=== PATIENT | female | born 1990 | race American Indian/Alaskan Native ===

== ENCOUNTER 2022-05-13 20:21 | Observation (INO) | payer SELFPAY ==
--- NOTE | 2022-05-13 21:13 | Emergency Department Report ---
HPI - General Chief Complaint: Headache Time Seen by Provider: 05/13/22 20:41 - HPI HPI: Room 22 The patient is a 32-year-old female present with a chief complaint of fall headache stuttering speech and right leg weakness. Patient states just prior to arrival while standing she felt dizzy and fell to the ground. Patient denies losing consciousness. Patient states afterwards she developed blurred vision from the right eye headache nausea/vomiting stuttering speech and weakness in the right lower extremity. Patient states she felt off balance when walking. Patient denies paresthesia. ED Past Medical Hx - Past Medical History Previous Medical History?: No - Surgical History Additional Surgical History: Ovarian cyst removal - Family History Family history: no significant - Social History Smoking Status: Former Smoker (None x2 years) Substance Use Type: Marijuana ED Review of Systems ROS: Stated complaint: POSSIBLE STROKE Other details as noted in HPI Constitutional: no symptoms reported Eyes: vision change ENT: denies: throat pain Respiratory: no symptoms reported Cardiovascular: denies: chest pain Endocrine: no symptoms reported Gastrointestinal: denies: abdominal pain Genitourinary: denies: dysuria Musculoskeletal: back pain Neurological: headache, weakness. denies: paresthesias Physical Exam - Physical Exam Vital Signs: Vital Signs 05/13/22 20:28 Temperature 98.3 F Pulse Rate 76 Respiratory 16 Rate Blood Pressure 153/89 [Right] O2 Sat by Pulse 100 Oximetry Physical Exam: GENERAL: The patient is well-developed well-nourished female lying on stretcher not appearing to be in acute distress. Occasional stuttering speech HEENT: Normocephalic. Atraumatic. Extraocular motions are intact. Patient has moist mucous membranes. NECK: Supple. Trachea midline CHEST/LUNGS: Clear to auscultation. There is no respiratory distress noted. HEART/CARDIOVASCULAR: Regular. There is no tachycardia. There is no gallop rub or murmur. ABDOMEN: Abdomen is soft, nontender. Patient has normal bowel sounds. There is no abdominal distention. SKIN: There is no rash. There is no edema. There is no diaphoresis. NEURO: The patient is awake, alert, and oriented. The patient is cooperative. The patient has no focal neurologic deficits. The patient has occasional stammering speech. GCS 15. Patient is able to hold right upper extremity at 45 degree angle for 10-second count-there is some drift but he does not fall to the bed. Patient able to hold left upper extremity at 45 degree angle for 10- second count without drift. Patient is able to hold left lower extremity at 30 degree angle for 5-second count without drift. Patient is unable to fully raise right lower extremity to 30 degree angle. Cranial nerves II through XII grossly intact with exception of cranial nerve #11 on the right. NIHSS= 3 MUSCULOSKELETAL: There is no evidence of acute injury. ED Course Vital Signs 05/13/22 20:28 Temperature 98.3 F Pulse Rate 76 Respiratory 16 Rate Blood Pressure 153/89 [Right] O2 Sat by Pulse 100 Oximetry - Consultations Consultation #1: 05/13/22 22:06 Case discussed with neurologist-no tPA. Recommends admission for MRI ED Medical Decision Making - Lab Data Result diagrams: 05/13/22 20:58 05/13/22 20:58 Laboratory Tests 05/13/22 05/13/22 05/13/22 20:40 20:58 20:58 WBC 13.3 H RBC 4.46 Hgb 13.2 Hct 39.7 MCV 89 MCH 30 MCHC 33 RDW 15.0 Plt Count 351 Lymph # (Auto) Strategic Intelligence Officer Add Manual Diff Complete Total Counted 100 Seg Neuts % (Manual) 59.0 Band Neutrophils % 0 Lymphocytes % (Manual) 34.0 Reactive Lymphs % (Man) 0 Monocytes % (Manual) 5.0 Eosinophils % (Manual) 1.0 Basophils % (Manual) 1.0 Metamyelocytes % 0 Myelocytes % 0 Promyelocytes % 0 Blast Cells % 0 Nucleated RBC % Not Reportable Seg Neutrophils # Man 7.8 H Band Neutrophils # 0.0 Lymphocytes # (Manual) 4.5 Abs React Lymphs (Man) 0.0 Monocytes # (Manual) 0.7 Eosinophils # (Manual) 0.1 Basophils # (Manual) 0.1 Metamyelocytes # 0.0 Myelocytes # 0.0 Promyelocytes # 0.0 Blast Cells # 0.0 WBC Morphology Not Reportable Hypersegmented Neuts Not Reportable Hyposegmented Neuts Not Reportable Hypogranular Neuts Not Reportable Smudge Cells Not Reportable Toxic Granulation Not Reportable Toxic Vacuolation Not Reportable Dohle Bodies Not Reportable Pelger-Huet Anomaly Not Reportable Rashi Rods Not Reportable Platelet Estimate Consistent w auto Clumped Platelets Not Reportable Plt Clumps, EDTA Not Reportable Large Platelets Not Reportable Giant Platelets Not Reportable Platelet Satelliting Not Reportable Plt Morphology Comment Not Reportable RBC Morphology Not Reportable Dimorphic RBCs Not Reportable Polychromasia Not Reportable Hypochromasia Not Reportable Poikilocytosis Not Reportable Anisocytosis Not Reportable Microcytosis Not Reportable Macrocytosis Not Reportable Spherocytes Not Reportable Pappenheimer Bodies Not Reportable Sickle Cells Not Reportable Target Cells Not Reportable Tear Drop Cells Not Reportable Ovalocytes Not Reportable Helmet Cells Not Reportable [place] Bodies Not Reportable [place] Rings Not Reportable Dorris Cells Not Reportable Bite Cells Not Reportable Crenated Cell Not Reportable Elliptocytes Not Reportable Acanthocytes (Spur) Not Reportable Rouleaux Not Reportable Hemoglobin C Crystals Not Reportable Schistocytes Not Reportable Malaria parasites Not Reportable Bautista Bodies Not Reportable Hem Pathologist Commnt No PT 15.0 H INR 1.03 APTT 44.1 H Thrombin Time 20.0 H Sodium Potassium Chloride Carbon Dioxide Anion Gap BUN Creatinine Estimated GFR BUN/Creatinine Ratio Glucose POC Glucose 71 Calcium HCG, Qual Plasma/Serum Alcohol 05/13/22 05/13/22 05/13/22 20:58 20:58 20:58 WBC RBC Hgb Hct MCV MCH MCHC RDW Plt Count Lymph # (Auto) Add Manual Diff Total Counted Seg Neuts % (Manual) Band Neutrophils % Lymphocytes % (Manual) Reactive Lymphs % (Man) Monocytes % (Manual) Eosinophils % (Manual) Basophils % (Manual) Metamyelocytes % Myelocytes % Promyelocytes % Blast Cells % Nucleated RBC % Seg Neutrophils # Man Band Neutrophils # Lymphocytes # (Manual) Abs React Lymphs (Man) Monocytes # (Manual) Eosinophils # (Manual) Basophils # (Manual) Metamyelocytes # Myelocytes # Promyelocytes # Blast Cells # WBC Morphology Hypersegmented Neuts Hyposegmented Neuts Hypogranular Neuts Smudge Cells Toxic Granulation Toxic Vacuolation Dohle Bodies Pelger-Huet Anomaly Rashi Rods Platelet Estimate Clumped Platelets Plt Clumps, EDTA Large Platelets Giant Platelets Platelet Satelliting Plt Morphology Comment RBC Morphology Dimorphic RBCs Polychromasia Hypochromasia Poikilocytosis Anisocytosis Microcytosis Macrocytosis Spherocytes Pappenheimer Bodies Sickle Cells Target Cells Tear Drop Cells Ovalocytes Helmet Cells [place] Bodies [place] Rings Dorris Cells Bite Cells Crenated Cell Elliptocytes Acanthocytes (Spur) Rouleaux Hemoglobin C Crystals Schistocytes Malaria parasites Bautista Bodies Hem Pathologist Commnt PT INR APTT Thrombin Time Sodium 139 Potassium 4.7 Chloride 104.1 Carbon Dioxide 22 Anion Gap 18 BUN 10 Creatinine 0.7 Estimated GFR > 60 BUN/Creatinine Ratio 14 Glucose 74 POC Glucose Calcium 9.8 HCG, Qual Negative Plasma/Serum Alcohol < 0.01 - EKG Data -: EKG Interpreted by Me EKG shows normal: sinus rhythm Rate: normal - EKG Data When compared to previous EKG there are: previous EKG unavailable Interpretation: nonspecific ST-T wave warner (T wave inversions in leads III, V3) - Radiology Data Radiology results: report reviewed (CT head), image reviewed (CT head) [facility] [address] [place] [address] Cat Scan Report Signed Patient: NATHALIE TOBIN MR#: [id number] : 1990 Acct:[id number] Age/Sex: 32 / F ADM Date: 05/13/22 Loc: ED Attending Dr: Ordering Physician: GABRIELA LUNA MD Date of Service: 05/13/22 Procedure(s): CT head/brain wo con Accession Number(s): [id number] cc: GABRIELA LUNA MD CT BRAIN: 05/13/2022 INDICATION / CLINICAL INFORMATION: Headache, slurred speech. COMPARISON: None available. FINDINGS: BRAIN/INTRACRANIAL STRUCTURES: Unenhanced CT images of the brain demonstrate no evidence of acute abnormality. Ventricles and sulci are normal in size and shape. There is no evidence of ischemic injury, hemorrhage, or mass. There are no abnormal extra-axial fluid collections. EXTRACRANIAL STRUCTURES: Unremarkable. IMPRESSION: No acute abnormality All CT scans at this location are performed using dose reduction to ALARA by means of automated exposure control. Signer Name: Jasvir Lai MD Signed: 05/13/2022 9:12 PM Workstation Name: [id number] Transcribed By: ELIOT Dictated By: Jasvir Lai MD Electronically Authenticated By: Jasvir Lai MD Signed Date/Time: 05/13/222111 DD/ 2111 TD/TT: - Differential Diagnosis Complex migraines, CVA, multiple sclerosis, anxiety, Critical care attestation.: If time is entered above; I have spent that time in minutes in the direct care of this critically ill patient, excluding procedure time. ED Disposition Clinical Impression: Right sided weakness, Headache Disposition: ADMITTED INPATIENT Is pt being admited?: Yes Does the pt Need Aspirin: Yes Condition: Fair Time of Disposition: 23:21 (Care transferred to hospitalist (Dr. Lopez))
--- NOTE | 2022-05-13 21:16 | Cat Scan Report ---
CT BRAIN: 05/13/2022 INDICATION / CLINICAL INFORMATION: Headache, slurred speech. COMPARISON: None available. FINDINGS: BRAIN/INTRACRANIAL STRUCTURES: Unenhanced CT images of the brain demonstrate no evidence of acute abn ormality. Ventricles and sulci are normal in size and shape. There is no evidence of ischemic injury, hemorrhage, or mass. There are no abnormal extra-axial fluid collections. EXTRACRANIAL STRUCTURES: Unremarkable. IMPRESSION: No acute abnormality All CT scans at this location are performed using dose reduction to ALARA by means of automated expos ure control. Signer Name: Jasvir Lai MD Signed: 05/13/2022 9:12 PM Workstation Name: [id number]
[2022-05-13] MEDS ORDERED: ONDANSETRON 4 MG/2 ML INJ IV ONE (21:29)
[2022-05-13 21:50] LABS: Hematocrit 39.7 % (30.3-42.9); Hemoglobin 13.2 gm/dl (10.1-14.3); Mean Corpuscular HGB Conc 33 % (30-34); Mean Corpuscular Volume 89 fl (79-97); Platelet Count 351 K/mm3 (140-440); Red Blood Count 4.46 M/mm3 (3.65-5.03)
[2022-05-13 22:00] LABS: Blood Urea Nitrogen 10 mg/dL (7-17); Calcium 9.8 mg/dL (8.4-10.2); Hemolysis Index 96
[2022-05-13] MEDS ORDERED: BUTALB/ACETAMINOPHEN/CAFFEINE TAB PO ONE (22:05)
[2022-05-13] MEDS ORDERED: ASPIRIN 325 MG TAB PO ONE (22:06)
[2022-05-13 22:10] LABS: BUN/Creatinine Ratio 14
--- NOTE | 2022-05-13 22:23 | Emergency Department Report ---
Blank Doc - Documentation Documentation: [facility] Consult Note # Demographics Consult Type: Acute Stroke Level 2 (4.5-24 hrs) Patient Location: Emergency Room First Name: NATHALIE Last Name: CRISTA Date of : 1990 Age: 32 Gender: Female Facility: [facility] Time of Initial Page (Eastern Time): 05/13/2022, 20:40 Time of Return Call (Eastern Time): 05/13/2022, 20:40 # HPI History: 32yo F presents with SLATER, blurred vision and slurred speech since 1200 today # Scores Level of Consciousness 1a: [0] = Alert; keenly responsive LOC Questions 1b: [1] = Answers one correctly LOC Commands 1c: [0] = Performs both tasks correctly Best Gaze 2: [0] = Normal Visual 3: [0] = No visual loss Facial Palsy 4: [0] = Normal symmetrical movements Motor Arm Left 5a: [0] = No drift Motor Arm Right 5b: [0] = No drift Motor Leg Left 6a: [0] = No drift Motor Leg Right 6b: [0] = No drift Limb Ataxia 7: [0] = Absent Sensory 8: [0] = Normal Best Language 9: [0] = No aphasia Dysarthria 10: [1] = Awsg-yi-meehcavx dysarthria Extinction and Inattention 11: [0] = No abnormality NIHSS Total: 2 # Exam Motor: pt appears to give poor effort throughout, flat affect. # Assessment Impression: Stroke Mimic # Plan Thrombolytic/Intervention: NOT IV Thrombolysis or IA Intervention candidate Thrombolytic Exclusion: > 4.5 hours Thrombolytic/Intraarterial Exclusion: IV thrombolytic and IA intervention considered but not recommended as this patient's symptoms are not clinically consistent with an assumed diagnosis of stroke Imaging: (urgency: routine): MRI Brain with AND without contrast Other: If patient has any neurological deterioration please call me back immediately would not pursue stroke work-up if MRI is negative I have discussed my recommendations with the referring provider # Logistics Telemedicine: Interactive 2 way audio and visual telecommunication technology was utilized during this visit # Demographics First Name: NATHALIE Last Name: CRISTA Facility: [facility]
[2022-05-13 23:03] LABS: INR 1.03 (0.87-1.13)
[2022-05-13 23:04] LABS: Partial Thromboplastin Time 44.1 Sec. (24.2-36.6)
[2022-05-13 23:05] LABS: Platelet Estimate Consistent w Auto; Total Cells Counted 100
[2022-05-13] MEDS ORDERED: ONDANSETRON 4 MG/2 ML INJ IV PRN (23:22)
[2022-05-13] MEDS ORDERED: MORPHINE 2 MG/1 ML INJ IV PRN ×2 (23:22→23:50)
[2022-05-13] MEDS ORDERED: ACETAMINOPHEN 325 MG TAB PO PRN (23:22)
[2022-05-13] MEDS ORDERED: D5W/0.45% NACL 1,000 ML IV SCH (23:45)
[2022-05-13] MEDS ORDERED: MORPHINE 4 MG/1 ML INJ IV PRN (23:50)
--- NOTE | 2022-05-13 23:58 | History and Physical Report ---
History of Present Illness Date of examination: 05/13/22 Date of admission: 05/13/22 Chief complaint: Headache History of present illness: 32-year-old female present with a chief complaint of fall headache stuttering speech and right leg weakness. Patient states just prior to arrival while standing she felt dizzy and fell to the ground. Patient denies losing cons ciousness. Patient states afterwards she developed blurred vision from the right eye headache nausea/vomiting stuttering speech and weakness in the right lower extremity. Patient states she felt off balance when walking. Patient denies paresthesia. In the emergency room initial CT scan of the head shows no acute intracranial abnormality. Subsequently patient was seen and evaluated by teleneurology who recommended no tPA and admission for MRI of the brain Past History Past Surgical History: Other Social history: smoking (Former smoker, marijuana) Family history: no significant family history (Ovarian cyst removal) Medications and Allergies Allergies Allergy/AdvReac Type Severity Reaction Status Date / Time No Known Allergies Allergy Verified 05/13/22 23:25 Active Meds: Active Medications Acetaminophen (Acetaminophen 325 Mg Tab) 650 mg PO Q4H PRN PRN Reason: Pain MILD(1-3)/Fever >100.5/SLATER Morphine Sulfate (Morphine 2 Mg/1 Ml Inj) 2 mg IV Q4H PRN PRN Reason: Pain, Moderate (4-6) Ondansetron HCl (Ondansetron 4 Mg/2 Ml Inj) 4 mg IV Q8H PRN PRN Reason: Nausea And Vomiting Sodium Chloride (Sodium Chloride 0.9% 10 Ml Flush Syringe) 10 ml IV BID PATRICIA Sodium Chloride (Sodium Chloride 0.9% 10 Ml Flush Syringe) 10 ml IV PRN PRN PRN Reason: LINE FLUSH Review of Systems Constitutional: other (Headache, right leg weakness, dizziness, fell to the ground) Exam - Constitutional Vitals: Temp Pulse Resp BP Pulse Ox 98.3 F 76 22 153/89 100 05/13/22 20:28 05/13/22 20:28 05/13/22 22:10 05/13/22 20:28 05/13/22 22:10 General appearance: Present: no acute distress, well-nourished - EENT Eyes: Present: PERRL ENT: hearing intact, clear oral mucosa - Neck Neck: Present: supple, normal ROM - Respiratory Respiratory effort: normal Respiratory: bilateral: CTA - Cardiovascular Heart Sounds: Present: S1 & S2. Absent: rub, click - Extremities Extremities: pulses symmetrical, No edema Peripheral Pulses: within normal limits - Abdominal General gastrointestinal: Present: soft, non-tender, non-distended, normal bowel sounds Female genitourinary: Present: normal - Integumentary Integumentary: Present: clear, warm, dry - Musculoskeletal Musculoskeletal: gait normal, strength equal bilaterally - Psychiatric Psychiatric: appropriate mood/affect, intact judgment & insight - Neurologic Neurologic: CNII-XII intact, moves all extremities Results - Labs CBC & Chem 7: 05/13/22 20:58 05/13/22 20:58 Labs: Laboratory Last Values WBC 13.3 K/mm3 (4.5-11.0) H 05/13/22 20:58 RBC 4.46 M/mm3 (3.65-5.03) 05/13/22 20:58 Hgb 13.2 gm/dl (10.1-14.3) 05/13/22 20:58 Hct 39.7 % (30.3-42.9) 05/13/22 20:58 MCV 89 fl (79-97) 05/13/22 20:58 MCH 30 pg (28-32) 05/13/22 20:58 MCHC 33 % (30-34) 05/13/22 20:58 RDW 15.0 % (13.2-15.2) 05/13/22 20:58 Plt Count 351 K/mm3 (140-440) 05/13/22 20:58 Lymph # (Auto) Case Assembler 05/13/22 20:58 Add Manual Diff Complete 05/13/22 20:58 Total Counted 100 05/13/22 20:58 Seg Neuts % (Manual) 59.0 % (40.0-70.0) 05/13/22 20:58 Band Neutrophils % 0 % 05/13/22 20:58 Lymphocytes % (Manual) 34.0 % (13.4-35.0) 05/13/22 20:58 Reactive Lymphs % (Man) 0 % 05/13/22 20:58 Monocytes % (Manual) 5.0 % (0.0-7.3) 05/13/22 20:58 Eosinophils % (Manual) 1.0 % (0.0-4.3) 05/13/22 20:58 Basophils % (Manual) 1.0 % (0.0-1.8) 05/13/22 20:58 Metamyelocytes % 0 % 05/13/22 20:58 Myelocytes % 0 % 05/13/22 20:58 Promyelocytes % 0 % 05/13/22 20:58 Blast Cells % 0 % 05/13/22 20:58 Nucleated RBC % Not Reportable 05/13/22 20:58 Seg Neutrophils # Man 7.8 K/mm3 (1.8-7.7) H 05/13/22 20:58 Band Neutrophils # 0.0 K/mm3 05/13/22 20:58 Lymphocytes # (Manual) 4.5 K/mm3 (1.2-5.4) 05/13/22 20:58 Abs React Lymphs (Man) 0.0 K/mm3 05/13/22 20:58 Monocytes # (Manual) 0.7 K/mm3 (0.0-0.8) 05/13/22 20:58 Eosinophils # (Manual) 0.1 K/mm3 (0.0-0.4) 05/13/22 20:58 Basophils # (Manual) 0.1 K/mm3 (0.0-0.1) 05/13/22 20:58 Metamyelocytes # 0.0 K/mm3 05/13/22 20:58 Myelocytes # 0.0 K/mm3 05/13/22 20:58 Promyelocytes # 0.0 K/mm3 05/13/22 20:58 Blast Cells # 0.0 K/mm3 05/13/22 20:58 WBC Morphology Not Reportable 05/13/22 20:58 Hypersegmented Neuts Not Reportable 05/13/22 20:58 Hyposegmented Neuts Not Reportable 05/13/22 20:58 Hypogranular Neuts Not Reportable 05/13/22 20:58 Smudge Cells Not Reportable 05/13/22 20:58 Toxic Granulation Not Reportable 05/13/22 20:58 Toxic Vacuolation Not Reportable 05/13/22 20:58 Dohle Bodies Not Reportable 05/13/22 20:58 Pelger-Huet Anomaly Not Reportable 05/13/22 20:58 Rashi Rods Not Reportable 05/13/22 20:58 Platelet Estimate Consistent w auto 05/13/22 20:58 Clumped Platelets Not Reportable 05/13/22 20:58 Plt Clumps, EDTA Not Reportable 05/13/22 20:58 Large Platelets Not Reportable 05/13/22 20:58 Giant Platelets Not Reportable 05/13/22 20:58 Platelet Satelliting Not Reportable 05/13/22 20:58 Plt Morphology Comment Not Reportable 05/13/22 20:58 RBC Morphology Not Reportable 05/13/22 20:58 Dimorphic RBCs Not Reportable 05/13/22 20:58 Polychromasia Not Reportable 05/13/22 20:58 Hypochromasia Not Reportable 05/13/22 20:58 Poikilocytosis Not Reportable 05/13/22 20:58 Anisocytosis Not Reportable 05/13/22 20:58 Microcytosis Not Reportable 05/13/22 20:58 Macrocytosis Not Reportable 05/13/22 20:58 Spherocytes Not Reportable 05/13/22 20:58 Pappenheimer Bodies Not Reportable 05/13/22 20:58 Sickle Cells Not Reportable 05/13/22 20:58 Target Cells Not Reportable 05/13/22 20:58 Tear Drop Cells Not Reportable 05/13/22 20:58 Ovalocytes Not Reportable 05/13/22 20:58 Helmet Cells Not Reportable 05/13/22 20:58 [place] Bodies Not Reportable 05/13/22 20:58 [place] Rings Not Reportable 05/13/22 20:58 [place] Cells Not Reportable 05/13/22 20:58 Bite Cells Not Reportable 05/13/22 20:58 Crenated Cell Not Reportable 05/13/22 20:58 Elliptocytes Not Reportable 05/13/22 20:58 Acanthocytes (Spur) Not Reportable 05/13/22 20:58 Rouleaux Not Reportable 05/13/22 20:58 Hemoglobin C Crystals Not Reportable 05/13/22 20:58 Schistocytes Not Reportable 05/13/22 20:58 Malaria parasites Not Reportable 05/13/22 20:58 Bautista Bodies Not Reportable 05/13/22 20:58 Hem Pathologist Commnt No 05/13/22 20:58 PT 15.0 Sec. (12.2-14.9) H 05/13/22 20:58 INR 1.03 (0.87-1.13) 05/13/22 20:58 APTT 44.1 Sec. (24.2-36.6) H 05/13/22 20:58 Thrombin Time 20.0 Sec. (15.1-19.6) H 05/13/22 20:58 Sodium 139 mmol/L (137-145) 05/13/22 20:58 Potassium 4.7 mmol/L (3.6-5.0) 05/13/22 20:58 Chloride 104.1 mmol/L (98-107) 05/13/22 20:58 Carbon Dioxide 22 mmol/L (22-30) 05/13/22 20:58 Anion Gap 18 mmol/L 05/13/22 20:58 BUN 10 mg/dL (7-17) 05/13/22 20:58 Creatinine 0.7 mg/dL (0.6-1.2) 05/13/22 20:58 Estimated GFR > 60 ml/min 05/13/22 20:58 BUN/Creatinine Ratio 14 % 05/13/22 20:58 Glucose 74 mg/dL (65-100) 05/13/22 20:58 POC Glucose 71 mg/dL (70-105) 05/13/22 20:40 Calcium 9.8 mg/dL (8.4-10.2) 05/13/22 20:58 HCG, Qual Negative (Negative) 05/13/22 20:58 Plasma/Serum Alcohol < 0.01 % (0-0.07) 05/13/22 20:58 - Imaging and Cardiology CT Scan - head: report reviewed Assessment and Plan VTE prophylaxis?: Mechanical Plan of care discussed with patient/family: Yes - Patient Problems (1) Right sided weakness Status: Acute Plan to address problem: Admit the patient to the medical telemetry. Aspirin 325 mg p.o. daily. Lipitor 40 mg p.o. daily. PT OT speech evaluation. MRI of the brain. MRI of the brain and neck with and without contrast. Neurology evaluation (2) Headache Status: Acute Plan to address problem: Tylenol 650 mg p.o. every 6 hours as needed. Morphine 2 mg IV every 4 hours as needed. We will monitor the patient closely (3) Tobacco abuse Status: Acute Plan to address problem: Patient counseled regarding quitting smoking. We put the patient on nicotine patch if needed (4) Marijuana abuse Status: Acute Plan to address problem: Patient counseled regarding quit taking marijuana. Patient voiced seems understanding (5) DVT prophylaxis Status: Acute Plan to address problem: SCD for DVT prophylaxis. Pepcid 20 mg IV every 12 hours for GI prophylaxis. Patient is a full code
[2022-05-14] MEDS: IPRATROPIUM/ALBUTEROL SULFATE 3 ML AMPUL.NEB IH SCH ×2 (08:23→16:13)
[2022-05-14] MEDS ORDERED: ASPIRIN 325 MG TAB PO SCH (10:00)
--- NOTE | 2022-05-14 10:22 | Magnetic Resonance Report ---
MR brain wo con INDICATION / CLINICAL INFORMATION: 32 years Female; stroke. TECHNIQUE: Multiplanar, multisequence MR images of the brain were obtained. Significant dental amalgam artifact noted. COMPARISON: CT-05/13/2022 FINDINGS: BRAIN / INTRACRANIAL CONTENTS: No acute hemorrhage, mass effect, midline shift, hydrocephalus, or acu te, large territorial infarct. No chronic infarct or atrophy. No significant white matter abnormality . CRANIOCERVICAL JUNCTION: No significant abnormality. VASCULAR FLOW-VOIDS: No significant abnormality. ORBITS: No significant abnormality of visualized orbits. SINUSES / MASTOIDS: No significant abnormality in the visualized paranasal sinuses or mastoid air dedrick ls. ADDITIONAL FINDINGS: None. IMPRESSION: 1. No focal mass, hemorrhage, hydrocephalus, or acute ischemia. Study limited by dental amalgam artif act. Signer Name: Andres Roy MD, III Signed: 05/14/2022 10:18 AM Workstation Name: [id number]
--- NOTE | 2022-05-14 10:24 | Magnetic Resonance Report ---
MR MRA/MRV head wo con INDICATION / CLINICAL INFORMATION: 32 years Female; stroke. TECHNIQUE: 3-D time of flight. NASCET type criteria used to evaluate stenoses. Study limited by dent al amalgam artifact. COMPARISON: None available. FINDINGS: INTERNAL CAROTID ARTERIES: Not well visualized on this study VERTEBROBASILAR SYSTEM: No significant narrowing appreciated. DISTAL BRANCHES: Distal branches of the anterior, middle, and posterior cerebral arteries are not wel l visualized on this exam because of dental amalgam artifact.. ANEURYSM: None identified. IMPRESSION: Study markedly limited, as described above. CTA of the head may be helpful for further evaluation, if clinically warranted. Signer Name: Andres Roy MD, III Signed: 05/14/2022 10:20 AM Workstation Name: [id number]
--- NOTE | 2022-05-14 10:29 | Consultation ---
History of Present Illness Consult date: 05/14/22 Reason for Consult: cva Chief complaint: Fall w/ weakness History of present illness: 32 yo right-handed female with migraine d/o, marijuana abuse, remote tobacco abuse, who presents with an episode of a fall with left-sided headache with slurred speech and right leg weakness w/ unsteadiness. Notes transient blurring of vision with headache (on the right side of the head) w/ nausea/emesis. Notes she has hx of migraines but they do not present like this and the migraine headache is different from this type of headache. She notes pressure behind the right eye right currently. Past History Past Surgical History: Other Social history: smoking (Former smoker, marijuana) Family history: no significant family history (Ovarian cyst removal) Medications and Allergies Allergies Allergy/AdvReac Type Severity Reaction Status Date / Time No Known Allergies Allergy Verified 05/13/22 23:25 Active Meds: Active Medications Acetaminophen (Acetaminophen 325 Mg Tab) 650 mg PO Q4H PRN PRN Reason: Pain MILD(1-3)/Fever >100.5/SLATER Albuterol/Ipratropium (Ipratropium/Albuterol Sulfate 3 Ml Ampul.Neb) 1 ampul IH Q6HRT [facility] Last Admin: 05/14/22 08:23 Dose: Not Given Aspirin (Aspirin 325 Mg Tab) 325 mg PO QDAY [facility] Atorvastatin Calcium (Atorvastatin 40 Mg Tab) 40 mg PO QHS [facility] Famotidine (Famotidine 20 Mg/2 Ml Inj) 20 mg IV BID [facility] Dextrose/Sodium Chloride (D5/0.45ns) 1,000 mls @ 100 mls/hr IV DIRECT PATRICIA Morphine Sulfate (Morphine 2 Mg/1 Ml Inj) 2 mg IV Q4H PRN PRN Reason: Pain, Moderate (4-6) Morphine Sulfate (Morphine 4 Mg/1 Ml Inj) 4 mg IV Q4H PRN PRN Reason: Pain , Severe (7-10) Ondansetron HCl (Ondansetron 4 Mg/2 Ml Inj) 4 mg IV Q8H PRN PRN Reason: Nausea And Vomiting Sodium Chloride (Sodium Chloride 0.9% 10 Ml Flush Syringe) 10 ml IV PRN PRN PRN Reason: LINE FLUSH Sodium Chloride (Sodium Chloride 0.9% 10 Ml Flush Syringe) 10 ml IV BID [facility] Review of Systems All systems: negative (as per hpi;) Physical Examination - Vital Signs Vital Signs: Vital Signs Temp Pulse Resp BP Pulse Ox 98.3 F 76 16 153/89 100 05/13/22 20:28 05/13/22 20:28 05/13/22 20:28 05/13/22 20:28 05/13/22 20:28 - Physical Exam Narrative exam: Gen: nad, well-nourished; Head: normocephalic; Eyes: no gaze deviation; no ptosis; ENT: normal vocalization; CVS: warm and well-perfused; Pulm: normal work of breathing; GI: appears non-distended; Ext: no cyanosis appreciated at distal extremities; Skin: no acute rash at distal extremities; Heme: no pathologic ecchymosis appreciated at distal extremities; Neuro: alert, oriented to name, age, month, year, surroundings, no dysarthria, no aphasia, CN 2 - PERRL, visual hernandez grossly intact except decreased lateral peripheral vision at right eye only, CN 3, 4, 6 - EOMI, CN 5 - facial sensation symmetric to light touch, CN 7 - facial movement symmetric, CN 8 - hearing grossly intact, CN 9, 10 - uvula midline, CN 11 symmetric shoulder movement, CN 12 - tongue midline; Motor - at least 4+/5 at all exts with straight drift at right arm/leg; Sensory - light touch symmetric, Cerebellar - fnf intact with difficulty with right hts due to weakness, Gait - deferred secondary to fall risk; NIHSS (1a.) Level of Consciousness:0 (1b.) LOC Questions:0 (1c.) LOC Commands:0 (2.) Best Gaze:0 (3.) Visual:1 (4.) Facial Palsy:0 (5a.) Motor Arm, Left:0 (5b.) Motor Arm, Right:1 (6a.) Motor Leg, Left:0 (6b.) Motor Leg, Right:1 (7.) Limb Ataxia:0 (8.) Sensory:0 (9.) Best Language:0 (10.) Dysarthria:0 (11.) Extinction and Inattention:0 NIHSS Total Score: 3 Results - Laboratory Findings CBC and BMP: 05/14/22 04:00 05/14/22 Unknown Abnormal Lab Findings: Abnormal Labs 05/13/22 05/13/22 20:58 20:58 WBC 13.3 H Seg Neutrophils # Man 7.8 H PT 15.0 H APTT 44.1 H Thrombin Time 20.0 H Assessment and Plan 32 yo right-handed female with migraine d/o, marijuana abuse, remote tobacco abuse, who presents with an episode of a fall with left-sided headache with slurred speech and right leg weakness w/ unsteadiness w/ blurred vision and currently with a sensation of pressure behind the right eye. 1. Conversion Disorder - diagnosis of exclusion; mri brain w/ wo contrast; cta/ctv head/neck w/ wo contrast; 2. Syncope - non-neurogenic workup per primary team; cta head/neck w/ wo contrast. 3. Acute Ischemic Stroke - awaiting mri imaging; antiplatelet/statin therapy if mri is positive for acute infarction (tte; stroke labs). 4. Acute Right Hemiparesis - pt/ot evaluation / monitoring. 5. Right Eye Visual Change - low vision ot evaluation / monitoring; ophthalmol ogy evaluation ariel. 6. Migraine d/o - this presentation is not c/w patient's migraine headache(s). 7. Marijuana Abuse - outpatient cessation program. Crow Loco MD Neurology [id number]
--- NOTE | 2022-05-14 10:33 | Electrocardiograph Report ---
[facility] Test Date: 2022-05-13 Test Time: 21:39:05 Pat Name: NATHALIE TOBIN Department: Room: A473 1 Gender: F Date Pitter: JAUN : 1990 Requested By: GABRIELA LUNA Order Number: [id number] Reading MD: Joseph Gambino Measurements Intervals [place] Rate: 78 P: 53 GA: 162 QRS: 65 QRSD: 77 T: -21 QT: 397 QTc: 453 Interpretive Statements Sinus rhythm Probable left atrial enlargement Probable anteroseptal infarct, old No previous ECG available for comparison Electronically Signed On 05-14-2022 10:33:06 EDT by Joseph Gambino
[2022-05-14] MEDS: FAMOTIDINE 20 MG/2 ML INJ IV SCH ×2 (10:43→21:08)
[2022-05-14] MEDS: ACETAMINOPHEN 325 MG TAB PO PRN (10:53)
[2022-05-14] MEDS: ONDANSETRON 4 MG/2 ML INJ IV PRN (12:37)
[2022-05-14 14:40] LABS: Basophils % (Auto) 0.4 % (0.0-1.8); Eosinophils # (Auto) 0.1 K/mm3 (0.0-0.4); Eosinophils % (Auto) 1.4 % (0.0-4.3); Hematocrit 35.9 % (30.3-42.9); Hemoglobin 11.9 gm/dl (10.1-14.3); Lymphocytes # (Auto) 3.2 K/mm3 (1.2-5.4); Lymphocytes % (Auto) 38.8 % (13.4-35.0); Mean Corpuscular HGB Conc 33 % (30-34); Mean Corpuscular Volume 89 fl (79-97); Monocytes # (Auto) 0.7 K/mm3 (0.0-0.8); Monocytes % (Auto) 8.5 % (0.0-7.3); Platelet Count 330 K/mm3 (140-440); Red Blood Count 4.05 M/mm3 (3.65-5.03); Red Cell Distribution Width 14.9 % (13.2-15.2)
[2022-05-14 14:56] LABS: Blood Urea Nitrogen 8 mg/dL (7-17); HDL Cholesterol 55 mg/dL (40-59); Hemolysis Index 8; LDL Cholesterol,Direct 102 mg/dL (50-130)
[2022-05-14 15:12] LABS: Amphetamine Screen,Urine PRESUMPTIVE NEGATIVE; Benzodiazepines Screen,Urine PRESUMPTIVE NEGATIVE; Cannabinoid Screen,Urine PRESUMPTIVE POSITIVE; Cocaine Screen,Urine PRESUMPTIVE NEGATIVE; Methadone Screen,Urine PRESUMPTIVE NEGATIVE; Opiate Screen,Urine PRESUMPTIVE NEGATIVE
[2022-05-14 15:25] LABS: BUN/Creatinine Ratio 11
--- NOTE | 2022-05-14 17:38 | Progress Note ---
Assessment and Plan Assessment and plan: #Possible acute ischemic CVAruled out #Right-sided weakness Unremarkable CT head noncontrast, MRI brain without contrast, MRA head and neck without contrast Discontinued aspirin 325 mg daily and Lipitor 40 mg daily. Unremarkable lipid profile. Neurology consulted for further management; pending recs PT/OT/speech therapy consulted; pending recs. Speech therapy recommending regular diet. #Possible complex migraine Patient endorses history of migraines but does not take any medications Neurology consulted; pending recs. Can consider starting triptans. #Right adnexal tenderness Unremarkable beta-hCG. Ordering urinalysis to evaluate for possible cystitis. Pending rapid HIV 1/2, chlamydia and gonorrhea PCR, and HSV PCR. If pain continues to progress, consider CT abdomen and pelvis. #Tobacco dependence #Tobacco/Smoking cessation counseling - Counseled patient about the importance of smoking cessation and the possible sequelae as a result of continued tobacco consumption. The patient expresses understanding. Ordering nicotine patch 14 mg daily. -Time: +15 mins #Polysubstance dependence -Patient engages in the following substances: Marijuana -Counseled patient about the importance of cessation of substance abuse. Offered resources to help with quitting. Patient expresses understanding. -Time: +15 mins #Morbid obesity #Weight loss counseling #Exercise counseling - BMI 44.8 - Counseled patient on the importance of weight loss, incorporating exercise, and dietary changes (lean meats, fresh fruits and vegetables, and water intake). Patient expresses understanding. - Time: +15 min #Advanced care planning -Disease education conducted, care plan discussed, diagnoses discussed, progno sis discussed, and patient acknowledges understanding with care plan -Time: +30 min Disposition Plan: Continue medical management Total Time Spent with Patient (Minutes): 45 minutes History Interval history: No acute events overnight. Hospitalist Physical - Constitutional Vitals: Temp Pulse Resp BP Pulse Ox 98.1 F 68 20 135/90 100 05/14/22 15:17 05/14/22 15:17 05/14/22 12:00 05/14/22 15:17 05/14/22 16:06 General appearance: Present: no acute distress, well-nourished, obese, other (Slightly slurred speech) - EENT Eyes: Present: PERRL, EOM intact ENT: hearing intact, clear oral mucosa, dentition normal - Neck Neck: Present: supple, normal ROM - Respiratory Respiratory effort: normal Respiratory: bilateral: CTA - Cardiovascular Rhythm: regular Heart Sounds: Present: S1 & S2 - Extremities Extremities: no ischemia, pulses intact, pulses symmetrical, No edema, normal temperature, normal color Peripheral Pulses: within normal limits - Abdominal General gastrointestinal: soft, tender, non-distended, normal bowel sounds Localized gastrointestinal: tender: RLQ (On moderate palpation) - Integumentary Integumentary: Present: clear, warm, dry - Psychiatric Psychiatric: appropriate mood/affect, intact judgment & insight, memory intact, cooperative - Neurologic Neurologic: CNII-XII intact, focal deficits (4/5 strength of right upper and lower extremity. Slightly slurred speech.) - Allied Health Allied health notes reviewed: nursing Results - Labs CBC & Chem 7: 05/14/22 04:00 05/14/22 Unknown Labs: Laboratory Last Values WBC 8.2 K/mm3 (4.5-11.0) 05/14/22 04:00 RBC 4.05 M/mm3 (3.65-5.03) 05/14/22 04:00 Hgb 11.9 gm/dl (10.1-14.3) 05/14/22 04:00 Hct 35.9 % (30.3-42.9) 05/14/22 04:00 MCV 89 fl (79-97) 05/14/22 04:00 MCH 29 pg (28-32) 05/14/22 04:00 MCHC 33 % (30-34) 05/14/22 04:00 RDW 14.9 % (13.2-15.2) 05/14/22 04:00 Plt Count 330 K/mm3 (140-440) 05/14/22 04:00 Lymph % (Auto) 38.8 % (13.4-35.0) H 05/14/22 04:00 [place] % (Auto) 8.5 % (0.0-7.3) H 05/14/22 04:00 Eos % (Auto) 1.4 % (0.0-4.3) 05/14/22 04:00 Baso % (Auto) 0.4 % (0.0-1.8) 05/14/22 04:00 Lymph # (Auto) 3.2 K/mm3 (1.2-5.4) 05/14/22 04:00 [place] # (Auto) 0.7 K/mm3 (0.0-0.8) 05/14/22 04:00 Eos # (Auto) 0.1 K/mm3 (0.0-0.4) 05/14/22 04:00 Baso # (Auto) 0.0 K/mm3 (0.0-0.1) 05/14/22 04:00 Add Manual Diff Complete 05/13/22 20:58 Total Counted 100 05/13/22 20:58 Seg Neutrophils % 50.9 % (40.0-70.0) 05/14/22 04:00 Seg Neuts % (Manual) 59.0 % (40.0-70.0) 05/13/22 20:58 Band Neutrophils % 0 % 05/13/22 20:58 Lymphocytes % (Manual) 34.0 % (13.4-35.0) 05/13/22 20:58 Reactive Lymphs % (Man) 0 % 05/13/22 20:58 Monocytes % (Manual) 5.0 % (0.0-7.3) 05/13/22 20:58 Eosinophils % (Manual) 1.0 % (0.0-4.3) 05/13/22 20:58 Basophils % (Manual) 1.0 % (0.0-1.8) 05/13/22 20:58 Metamyelocytes % 0 % 05/13/22 20:58 Myelocytes % 0 % 05/13/22 20:58 Promyelocytes % 0 % 05/13/22 20:58 Blast Cells % 0 % 05/13/22 20:58 Nucleated RBC % Not Reportable 05/13/22 20:58 Seg Neutrophils # 4.2 K/mm3 (1.8-7.7) 05/14/22 04:00 Seg Neutrophils # Man 7.8 K/mm3 (1.8-7.7) H 05/13/22 20:58 Band Neutrophils # 0.0 K/mm3 05/13/22 20:58 Lymphocytes # (Manual) 4.5 K/mm3 (1.2-5.4) 05/13/22 20:58 Abs React Lymphs (Man) 0.0 K/mm3 05/13/22 20:58 Monocytes # (Manual) 0.7 K/mm3 (0.0-0.8) 05/13/22 20:58 Eosinophils # (Manual) 0.1 K/mm3 (0.0-0.4) 05/13/22 20:58 Basophils # (Manual) 0.1 K/mm3 (0.0-0.1) 05/13/22 20:58 Metamyelocytes # 0.0 K/mm3 05/13/22 20:58 Myelocytes # 0.0 K/mm3 05/13/22 20:58 Promyelocytes # 0.0 K/mm3 05/13/22 20:58 Blast Cells # 0.0 K/mm3 05/13/22 20:58 WBC Morphology Not Reportable 05/13/22 20:58 Hypersegmented Neuts Not Reportable 05/13/22 20:58 Hyposegmented Neuts Not Reportable 05/13/22 20:58 Hypogranular Neuts Not Reportable 05/13/22 20:58 Smudge Cells Not Reportable 05/13/22 20:58 Toxic Granulation Not Reportable 05/13/22 20:58 Toxic Vacuolation Not Reportable 05/13/22 20:58 Dohle Bodies Not Reportable 05/13/22 20:58 Pelger-Huet Anomaly Not Reportable 05/13/22 20:58 Rashi Rods Not Reportable 05/13/22 20:58 Platelet Estimate Consistent w auto 05/13/22 20:58 Clumped Platelets Not Reportable 05/13/22 20:58 Plt Clumps, EDTA Not Reportable 05/13/22 20:58 Large Platelets Not Reportable 05/13/22 20:58 Giant Platelets Not Reportable 05/13/22 20:58 Platelet Satelliting Not Reportable 05/13/22 20:58 Plt Morphology Comment Not Reportable 05/13/22 20:58 RBC Morphology Not Reportable 05/13/22 20:58 Dimorphic RBCs Not Reportable 05/13/22 20:58 Polychromasia Not Reportable 05/13/22 20:58 Hypochromasia Not Reportable 05/13/22 20:58 Poikilocytosis Not Reportable 05/13/22 20:58 Anisocytosis Not Reportable 05/13/22 20:58 Microcytosis Not Reportable 05/13/22 20:58 Macrocytosis Not Reportable 05/13/22 20:58 Spherocytes Not Reportable 05/13/22 20:58 Pappenheimer Bodies Not Reportable 05/13/22 20:58 Sickle Cells Not Reportable 05/13/22 20:58 Target Cells Not Reportable 05/13/22 20:58 Tear Drop Cells Not Reportable 05/13/22 20:58 Ovalocytes Not Reportable 05/13/22 20:58 Helmet Cells Not Reportable 05/13/22 20:58 [place] Bodies Not Reportable 05/13/22 20:58 [place] Rings Not Reportable 05/13/22 20:58 Bridget Cells Not Reportable 05/13/22 20:58 Bite Cells Not Reportable 05/13/22 20:58 Crenated Cell Not Reportable 05/13/22 20:58 Elliptocytes Not Reportable 05/13/22 20:58 Acanthocytes (Spur) Not Reportable 05/13/22 20:58 Rouleaux Not Reportable 05/13/22 20:58 Hemoglobin C Crystals Not Reportable 05/13/22 20:58 Schistocytes Not Reportable 05/13/22 20:58 Malaria parasites Not Reportable 05/13/22 20:58 Bautista Bodies Not Reportable 05/13/22 20:58 Hem Pathologist Commnt No 05/13/22 20:58 PT 15.0 Sec. (12.2-14.9) H 05/13/22 20:58 INR 1.03 (0.87-1.13) 05/13/22 20:58 APTT 44.1 Sec. (24.2-36.6) H 05/13/22 20:58 Thrombin Time 20.0 Sec. (15.1-19.6) H 05/13/22 20:58 Sodium 141 mmol/L (137-145) 05/14/22 Unknown Potassium 4.0 mmol/L (3.6-5.0) 05/14/22 Unknown Chloride 105.9 mmol/L (98-107) 05/14/22 Unknown Carbon Dioxide 24 mmol/L (22-30) 05/14/22 Unknown Anion Gap 15 mmol/L 05/14/22 Unknown BUN 8 mg/dL (7-17) 05/14/22 Unknown Creatinine 0.7 mg/dL (0.6-1.2) 05/14/22 Unknown Estimated GFR > 60 ml/min 05/14/22 Unknown BUN/Creatinine Ratio 11 % 05/14/22 Unknown Glucose 101 mg/dL (65-100) H 05/14/22 Unknown POC Glucose 71 mg/dL (70-105) 05/13/22 20:40 Calcium 9.0 mg/dL (8.4-10.2) 05/14/22 Unknown Triglycerides 63 mg/dL (2-149) 05/14/22 Unknown Cholesterol 171 mg/dL (50-199) 05/14/22 Unknown LDL Cholesterol Direct 102 mg/dL (50-130) 05/14/22 Unknown HDL Cholesterol 55 mg/dL (40-59) 05/14/22 Unknown Cholesterol/HDL Ratio 3.10 % 05/14/22 Unknown HCG, Qual Negative (Negative) 05/13/22 20:58 Urine Opiates Screen Presumptive negative 05/13/22 22:08 Urine Methadone Screen Presumptive negative 05/13/22 22:08 Ur Barbiturates Screen Presumptive negative 05/13/22 22:08 Ur Phencyclidine Scrn Presumptive negative 05/13/22 22:08 Ur Amphetamines Screen Presumptive negative 05/13/22 22:08 U Benzodiazepines Scrn Presumptive negative 05/13/22 22:08 Urine Cocaine Screen Presumptive negative 05/13/22 22:08 U Marijuana (THC) Screen Presumptive positive 05/13/22 22:08 Drugs of Abuse Note Disclamer 05/13/22 22:08 Plasma/Serum Alcohol < 0.01 % (0-0.07) 05/13/22 20:58 [place]/IV: Voiding Method Toilet Active Medications - Current Medications Current Medications: Generic Name Dose Route Start Last Admin Trade Name Freq PRN Reason Stop Dose Admin Acetaminophen 650 mg 05/13/22 23:50 05/14/22 10:53 Acetaminophen 325 Mg Tab PO 650 mg Q4H PRN Administration Pain MILD(1-3)/Fever >100.5/SLATER Aspirin 325 mg 05/14/22 10:00 05/14/22 10:43 Aspirin 325 Mg Tab PO 325 mg QDAY PATRICIA Administration Atorvastatin Calcium 40 mg 05/14/22 22:00 Atorvastatin 40 Mg Tab PO QHS PATRICIA Famotidine 20 mg 05/14/22 10:00 05/14/22 10:43 Famotidine 20 Mg/2 Ml Inj IV 20 mg BID PATRICIA Administration Morphine Sulfate 2 mg 05/13/22 23:50 Morphine 2 Mg/1 Ml Inj IV Q4H PRN Pain, Moderate (4-6) Morphine Sulfate 4 mg 05/13/22 23:50 Morphine 4 Mg/1 Ml Inj IV Q4H PRN Pain , Severe (7-10) Ondansetron HCl 4 mg 05/13/22 23:50 05/14/22 12:37 Ondansetron 4 Mg/2 Ml Inj IV 4 mg Q8H PRN Administration Nausea And Vomiting Sodium Chloride 10 ml 05/13/22 23:22 Sodium Chloride 0.9% 10 Ml Flush Syringe IV PRN PRN LINE FLUSH Sodium Chloride 10 ml 05/14/22 10:00 05/14/22 10:43 Sodium Chloride 0.9% 10 Ml Flush Syringe IV 10 ml BID PATRICIA Administration
[2022-05-14] MEDS ORDERED: HYDROcodone/ACETAMINOPHEN 5-325 MG TAB PO PRN (17:39)
[2022-05-14] MEDS ORDERED: MORPHINE 4 MG/1 ML INJ IV PRN (17:40)
[2022-05-15 08:02] VITALS: BP 118/64
[2022-05-15] MEDS: ONDANSETRON 4 MG/2 ML INJ IV PRN (08:59)
[2022-05-15] MEDS ORDERED: FAMOTIDINE 20 MG TAB PO SCH (11:00)
--- NOTE | 2022-05-15 11:22 | Discharge Summary ---
Providers - Providers Date of Admission: 05/13/22 23:23 Date of discharge: 05/15/22 Attending physician: KLAUDIA VAUGHN MD 05/13/22 23:50 Consult to Physician [CONS] Routine Comment: Consulting Provider: RENA HAUSER Physician Instructions: Reason For Exam: cva 05/13/22 23:51 Occupational Therapy Evaluate and Treat [CONS] Routine Comment: Reason For Exam: Neuro deficits Physical Therapy Evaluation and Treat [CONS] Routine Comment: Reason For Exam: Neuro deficits 05/14/22 08:24 Speech Therapy Evaluation and Treat [CONS] Routine Reason For Exam: Stroke workup Primary care physician: ANNAMARIA DALE Hospitalization Reason for admission: Possible acute ischemic CVA Condition: Fair Pertinent studies: Reviewed. Procedures: None. Hospital course: The patient is a 32-year-old female with past medical history of migraine headaches and morbid obesity who presented to the ED with stuttering, slurred speech, and right leg weakness after a fall at home. The patient described having significant headache complicated by blurred vision in her right eye, nausea, vomiting, and right lower extremity weakness that then resulted in her feeling lightheaded and experiencing a ground-level fall. Patient denies loss of consciousness. After the fall, the patient described feeling off balance with walking, and this prompted her to present to the ED. On original presentation, the patient was found to be hemodynamically stable with an elevated blood pressure of 153/89. Patient was admitted for stroke work-up. The patient underwent CT head noncontrast, MRI brain without contrast, and MRA head and neck without contrast were found to be unremarkable. The stroke pathway (aspirin and Lipitor) were discontinued. Neurology was consulted for further management. The differential of a complex migraine was ruled out given her presentation. The concern for possible conversion disorder has been brought up. The patient was evaluated by physical therapy who recommended home PT with a walker. The patient's symptoms have significantly improved, and she is almost back at her baseline. Patient will be referred to outpatient neurology for further management. Patient expresses understanding. Patient is medically clear for discharge. Disposition: HOME / SELF CARE / HOMELESS Final Discharge Diagnosis (Prints w/discharge instructions): Possible acute ischemic CVAruled out, right-sided weakness, possible complex migraineruled out, right adnexal tenderness, tobacco dependence, of marijuana usage, morbid obesity. Time spent for discharge: 45 min Core Measure Documentation - Palliative Care Palliative Care/ Comfort Measures: Not Applicable - Core Measures Any of the following diagnoses?: none Exam - Constitutional Vitals: Temp Pulse Resp BP Pulse Ox 98.2 F 77 15 118/64 95 05/15/22 07:39 05/15/22 07:39 05/15/22 03:52 05/15/22 07:39 05/15/22 07:39 General appearance: Present: no acute distress, well-nourished, obese, other (Mild dysarthria) - EENT Eyes: Present: PERRL, EOM intact ENT: hearing intact, clear oral mucosa, dentition normal - Neck Neck: Present: supple, normal ROM - Respiratory Respiratory effort: normal Respiratory: bilateral: CTA - Cardiovascular Rhythm: regular Heart Sounds: Present: S1 & S2 - Extremities Extremities: no ischemia, pulses intact, pulses symmetrical, No edema, normal temperature, normal color, Full ROM Peripheral Pulses: within normal limits - Abdominal General gastrointestinal: Present: soft, non-tender, non-distended, normal bowel sounds Female genitourinary: Present: deferred - Rectal Rectal Exam: deferred - Integumentary Integumentary: Present: clear, warm, dry - Musculoskeletal Musculoskeletal: other (4/5 strength of right lower extremity) - Psychiatric Psychiatric: appropriate mood/affect, intact judgment & insight, memory intact, cooperative - Neurologic Neurologic: CNII-XII intact, moves all extremities - Allied Health Allied health notes reviewed: nursing Plan Activity: advance as tolerated Diet: regular Additional Instructions: The patient is a 32-year-old female with past medical history of migraine headaches and morbid obesity who presented to the ED with stuttering, slurred speech, and right leg weakness after a fall at home. The patient described having significant headache complicated by blurred vision in her right eye, nausea, vomiting, and right lower extremity weakness that then resulted in her feeling lightheaded and experiencing a ground-level fall. Patient denies loss of consciousness. After the fall, the patient described feeling off balance with walking, and this prompted her to present to the ED. On original presentation, the patient was found to be hemodynamically stable with an elevated blood pressure of 153/89. Patient was admitted for stroke work-up. The patient underwent CT head noncontrast, MRI brain without contrast, and MRA head and neck without contrast were found to be unremarkable. The stroke pathway (aspirin and Lipitor) were discontinued. Neurology was consulted for further management. The differential of a complex migraine was ruled out given her presentation. The concern for possible conversion disorder has been brought up. The patient was evaluated by physical therapy who recommended home PT with a walker. The patient's symptoms have significantly improved, and she is almost back at her baseline. Patient will be referred to outpatient neurology for further management. Patient expresses understanding. Patient is medically clear for discharge. Care Plan Goals: Patient is medically clear for discharge. Assessment: The patient is a 32-year-old female with past medical history of migraine headaches and morbid obesity who presented to the ED with stuttering, slurred speech, and right leg weakness after a fall at home. The patient described kennedy ving significant headache complicated by blurred vision in her right eye, nausea, vomiting, and right lower extremity weakness that then resulted in her feeling lightheaded and experiencing a ground-level fall. Patient denies loss of consciousness. After the fall, the patient described feeling off balance with walking, and this prompted her to present to the ED. On original presentation, the patient was found to be hemodynamically stable with an elevated blood pressure of 153/89. Patient was admitted for stroke work-up. The patient underwent CT head noncontrast, MRI brain without contrast, and MRA head and neck without contrast were found to be unremarkable. The stroke pathway (aspirin and Lipitor) were discontinued. Neurology was consulted for further management. The differential of a complex migraine was ruled out given her presentation. The concern for possible conversion disorder has been brought up. The patient was evaluated by physical therapy who recommended home PT with a walker. The patient's symptoms have significantly improved, and she is almost back at her baseline. Patient will be referred to outpatient neurology for further management. Patient expresses understanding. Patient is medically clear for discharge. Follow up with: ZORAIDA ZAMBRANO MD [Staff Physician] - 14 Days KARINA CAT MD [Staff Physician] - 7 Days Forms: Work/School Release Form Prescriptions: Topiramate [Topamax] 25 mg PO DAILY #30 tab
[2022-05-15] MEDS: ACETAMINOPHEN 325 MG TAB PO PRN (11:40)
[2022-05-15] MEDS: FAMOTIDINE 20 MG/2 ML INJ IV SCH (11:42)
[2022-05-15] MEDS ORDERED: AZITHROMYCIN 250 MG TAB PO ONE (12:30)
[2022-05-15] MEDS ORDERED: LIDOCAINE-MPF (1%) 10 MG/1 ML VIAL 5 ML INFILTRATI ONE (12:30)
== END 2022-05-15 13:53 | disposition home or self-care (01) ==
LOC: ED 20:21 → 4A 23:23 → INTOOBSV 23:23
PROVIDERS: ADMIT Hospitalist; ATTEND Student in an Organized Health Care Education/Training Program
DX: I63.9 Cerebral infarction, unspecified (principal); M62.81 Muscle weakness (generalized); R42 Dizziness and giddiness; R55 Syncope and collapse; G81.91 Hemiplegia, unspecified affecting right dominant side; G43.909 Migraine, unspecified, not intractable, without status migrainosus; H53.8 Other visual disturbances; E66.01 Morbid (severe) obesity due to excess calories; F44.9 Dissociative and conversion disorder, unspecified; F12.10 Cannabis abuse, uncomplicated; R29.703 NIHSS score 3; Z87.891 Personal history of nicotine dependence; Z79.899 Other long term (current) drug therapy; Z98.890 Other specified postprocedural states; Z68.41 Body mass index [BMI] 40.0-44.9, adult
CPT/HCPCS: 36415; 70450; 70544; 70551; 80048; 80061; 80307; 82962; 83036; 84703; 85025; 85610; 85670; 85730; 87529; 87806; 92610; 93005; 96361; 96372; 96374; 96375; 96376; 97110; 97162; 97165; 97535; 99285; C8929; G0378; J0696; J2405; J3490; J7070; 80320; 85007; 93306; G0480